=== PATIENT | male | born 1960 | race Caucasian/White ===

== ENCOUNTER → 2018-02-28 | Outpatient (CLI) | payer OTHER ==
[~2018-02-28] MED LIST: ALBUTEROL SULFATE 0.083% NEB 2.5 MG/3 ML AMPUL NEB ONE
--- NOTE | 2018-03-04 12:45 | Pulmonary Function Test ---
Pulmonary Function Test Date of Procedure:: 02/28/18 INDICATION:: Coughing Referring Provider: Dr. [facility] Teacher: Wilma Stone [employer] TE[employer], FRONT DESK LEAD - Report Spirometry: FVC 0.92 L 24% postbronchodilator 0.67 L 17% FEV1 0.73 L 23% postbronchodilator 0.66 L 21% FEV1/FVC % 80 postbronchodilator therapy 99 predicted 81 Impression: Severe obstructive ventilatory defect with insignificant response to bronchodilator therapy this does not preclude a clinical trial of bronchodilator therapy. Restrictive defect may be inferred but cannot be diagnosed on the basis of spirometry alone if clinically warranted complete pulmonary function test would be indicated
== END ==
LOC: RT 12:24
DX: J44.9 Chronic obstructive pulmonary disease, unspecified (principal)
CPT/HCPCS: 94060; 94729